=== PATIENT | male | born 1990 | race Two or more races ===

== ENCOUNTER 2017-02-09 00:03 | Emergency (ER) | payer SELFPAY ==
[~2017-02-09] VITALS: Ht 175.3 cm; Wt 74.8 kg
[2017-02-09] MEDS ORDERED: NKM (00:11)
[2017-02-09 00:18] VITALS: BP 137/97
--- NOTE | 2017-02-09 00:27 | Emergency Room Report ---
History of Present Illness General Chief Complaint: Substance Abuse Source: Patient Present Illness HPI Is a 26-year-old male who is homeless. He admits to using some methamphetamine tonight. He was on the roof of an apartment and refuse to come down. He said he is going to go to sleep there. Police was called them and customer services coordinator called to bring him here. Patient said somebody muscle subsequently also discharge. Denies any suicidal thought homicidal thought. Denies hallucination or delusion. Allergies: Coded Allergies: No Known Allergies (Unverified , 02/09/17) Patient History Past Medical History: see triage record, old chart reviewed Past Surgical History: none Pertinent Family History: none Social History: Reports: smoking, drug use Immunizations: other Reviewed Nursing Documentation: PMH: Agreed, PSxH: Agreed Nursing Documentation-PMH Past Medical History: No Stated History Review of Systems Eye: Denies: eye pain, blurred vision ENT: Denies: ear pain, nose congestion, throat swelling Respiratory: Denies: cough, shortness of breath Cardiovascular: Denies: chest pain, palpitations Gastrointestinal: Denies: abdominal pain, diarrhea, nausea, vomiting Musculoskeletal: Denies: back pain, joint pain Skin: Denies: rash Neurological: Denies: headache, numbness Endocrine: Denies: increased thirst, increased urine Hematologic/Lymphatic: Denies: easy bruising All Other Systems: negative except mentioned in HPI Physical Exam Vital Signs Date Time Temp Pulse Resp B/P (MAP) Pulse Ox O2 Delivery O2 Flow Rate FiO2 02/09/17 00:11 98.2 90 20 137/97 100 Room Air vitals normal Sp02 EP Interpretation: reviewed, normal General Appearance: well appearing, no apparent distress, alert Head: normocephalic, atraumatic Eyes: bilateral eye PERRL, bilateral eye EOMI ENT: hearing grossly normal, normal pharynx Neck: full range of motion, supple, no meningismus Respiratory: chest non-tender, lungs clear, normal breath sounds Cardiovascular #1: regular rate, rhythm, no murmur Gastrointestinal: normal bowel sounds, non tender, no mass, no organomegaly, no bruit, non-distended Musculoskeletal: back normal, gait/station normal, normal range of motion Psychiatric: mood/affect normal Skin: warm/dry Medical Decision Making Diagnostic Impression: Primary Impression: Substance abuse Additional Impression: Psychosis Qualified Codes: F23 - Brief psychotic disorder ER Course 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 He is better now. Wants to leave. No criteria for 5150. This patient is a chronic risk of self injury due to poor impulse control, limited coping skills, and judgment intermittently impaired by intoxication. I believe that the available clinical evidence to suggest that these characteristics derived primarily from personality disorder and are likely very stable over time. Hospitalization would likely attenuate risk of self-harm only during senior care period, without lasting risk reduction. Serious self-harm , while possible, would likely be inadvertent, and because of impulsivity, and foreseeable. For these reasons, I do not believe hospitalization would provide meaningful reduction in risk of self-harm. Last Vital Signs Date Time Temp Pulse Resp B/P (MAP) Pulse Ox O2 Delivery O2 Flow Rate FiO2 02/09/17 00:18 98.2 90 20 137/97 100 Room Air Status: improved Disposition: HOME, SELF-CARE Condition: Stable Patient Instructions: Stimulant Use Disorder-Methamphetamines Additional Instructions: Stop using drugs. Followup with your DrJyothi in 7 days. Return worse. AMILCAR DOSS M.D. Feb 09, 2017 00:27
[2017-02-09 02:10] VITALS: BP 141/94
== END 2017-02-09 02:10 | disposition home or self-care (01) ==
LOC: EDBD 00:03 → EMR 00:33
DX: F15.10 Other stimulant abuse, uncomplicated (principal); F29 Unspecified psychosis not due to a substance or known physiological condition
CPT/HCPCS: 99283